=== PATIENT | female | born 1985 | race Caucasian/White ===

== ENCOUNTER → 2018-03-03 | Outpatient (REF) | payer BC ==
[2018-03-03 13:07] LABS: RHEUMATOID FACTOR QUANT 11.2 IU/ML (<15.0)
[2018-03-03 13:15] LABS: ESTIMATED AVERAGE GLUCOSE 108 MG/DL (60-110); HEMOGLOBIN A1c 5.4 %
[2018-03-03 13:19] LABS: FOLATE 8.2 NG/ML; VITAMIN B12 LEVEL > 2000 PG/ML
[2018-03-03 13:59] LABS: ERYTHROCYTE SEDIMENTATION RATE 22 mm/hr (0-20)
[2018-03-06 14:13] LABS: ANTINUCLEAR ANTIBODIES DIRECT Negative (Negative); VITAMIN B6,PYRIDOXAL PHOSPHATE 3.5 ug/L (2.0-32.8)
[2018-03-06 14:13] LABS: VITAMIN B1 LEVEL WHOLE BLOOD 123.3 nmol/L (66.5-200.0)
[2018-03-10 10:05] LABS: DRVV SCREEN 36.1 SEC
[2018-03-10 10:22] LABS: PTT LUPUS TYPE ANTICOAG SCREEN 0.9 (0-1.2)
== END ==
LOC: M LABNEURO 12:08
DX: R20.0 Anesthesia of skin (principal); G62.9 Polyneuropathy, unspecified

== ENCOUNTER → 2018-12-14 | Outpatient (REF) | payer BC ==
[2018-12-14 18:13] LABS: PROGESTERONE 8.14 NG/ML
== END ==
LOC: M LABNEURO 10:53
PROVIDERS: ATTEND Obstetrics & Gynecology Reproductive Endocrinology
DX: E28.9 Ovarian dysfunction, unspecified (principal)

== ENCOUNTER → 2019-01-15 | Outpatient (REF) | payer BC ==
[2019-01-15 15:48] LABS: HEMATOCRIT 33.8 % (36.0-47.0); HEMOGLOBIN 10.9 g/dl (12.0-15.5); MEAN CORPUSCULAR HEMOGLOBIN 29.1 pg (27.0-33.0); MEAN CORPUSCULAR HGB CONC 32.2 g/dl (32.0-36.5); MEAN CORPUSCULAR VOLUME 90.1 fl (80.0-96.0); PLATELET COUNT, AUTOMATED 264 10^3/uL (150-450); RED BLOOD COUNT 3.75 10^6/uL (4.00-5.40)
[2019-01-15 17:26] LABS: HEPATITIS C VIRUS ABY INDEX 0.2 INDEX (<0.8); HIV 1&2 SCREEN CENTAUR NEGATIVE (NEGATIVE); RUBELLA IgG QUALITATIVE IMMUNE (IMMUNE)
== END ==
LOC: M LAB REF 13:01
PROVIDERS: ATTEND Nurse Practitioner Women's Health
DX: Z34.81 Encounter for supervision of other normal pregnancy, first trimester (principal)

== ENCOUNTER → 2019-04-08 | Outpatient (REF) | payer BC | LOC: M LAB REF 11:38 | PROVIDERS: ATTEND Nurse Practitioner Women's Health | DX: O09.892 Supervision of other high risk pregnancies, second trimester (principal) ==

== ENCOUNTER → 2019-05-20 | Outpatient (REF) | payer BC | LOC: M LAB REF 12:54 | PROVIDERS: ATTEND Obstetrics & Gynecology | DX: O23.42 Unspecified infection of urinary tract in pregnancy, second trimester (principal) ==

== ENCOUNTER 2019-06-16 15:13 | Emergency (ER) | payer BC ==
[~2019-06-16] VITALS: Ht 175.3 cm; Wt 86.6 kg
[2019-06-16] MEDS ORDERED: SERT-138 PO (15:24)
[2019-06-16] MEDS ORDERED: PREN1CHW6 PO (15:24)
[2019-06-16] MEDS ORDERED: TOPI100T9 PO (15:24)
[2019-06-16] MEDS ORDERED: FLUD0.1T (15:39)
[2019-06-16 15:52] LABS: BASO % 0.2 % (0.0-1.0); EOS % 0.1 % (0.0-3.0); HEMATOCRIT 33.3 % (36.0-47.0); HEMOGLOBIN 11.2 g/dl (12.0-15.5); LYMPH # 1.6 10^3/uL (1.5-5.0); LYMPH % 13.5 % (24.0-44.0); MEAN CORPUSCULAR HEMOGLOBIN 31.3 pg (27.0-33.0); MEAN CORPUSCULAR HGB CONC 33.6 g/dl (32.0-36.5); MONO # 1.3 10^3/uL (0.0-0.8); MONO % 10.9 % (0.0-5.0); NEUTROPHILS # 8.7 10^3/uL (1.5-8.5); NEUTROPHILS % 74.5 % (36.0-66.0); PLATELET COUNT, AUTOMATED 246 10^3/uL (150-450); RED BLOOD COUNT 3.58 10^6/uL (4.00-5.40); WHITE BLOOD COUNT 11.7 10^3/uL (4.0-10.0)
[2019-06-16] MEDS ORDERED: NS 1,000 ML IV ONE (16:00)
[2019-06-16 16:12] LABS: BILIRUBIN,DIRECT 0.4 MG/DL (0.0-0.2); BILIRUBIN,TOTAL 0.7 MG/DL (0.2-1.0); TOTAL PROTEIN 7.5 GM/DL (6.4-8.2)
--- NOTE | 2019-06-16 16:37 | REP ---
Renal ultrasound for recurrent urinary tract infections: There are no comparisons. The right kidney measures 15.6 x 8.2 x 7.3 cm. The left kidney measures 3rd 10.4 x 6.1 x 6.1 cm. The kidneys are normal size. Renal cortical echogenicity is normal bilaterally. There is right hydronephrosis. There is no hydronephrosis on the left. There is right proximal hydroureter. There is no left proximal hydroureter. No renal calculi are identified. No solid or cystic renal masses are identified. Bladder: The bladder is empty and cannot be evaluated. Impression: Right hydronephrosis and proximal hydroureter. No hydronephrosis on the left. Electronically Signed by Sebastian Ivy MD 06/16/2019 04:29 P
[2019-06-16] MEDS ORDERED: AMPICILLIN SOD/SULBACTAM SOD 3 GM in D5W MINI-BAG PLUS 100 ML IV ONE (17:00)
[2019-06-16] MEDS ORDERED: KEFL500C17 PO (17:59)
[2019-06-16 18:05] VITALS: BP 112/57
== END 2019-06-16 18:16 | disposition home or self-care (01) ==
LOC: M ED 15:13
DX: O99.89 Other specified diseases and conditions complicating pregnancy, childbirth and the puerperium (principal); N10 Acute pyelonephritis; Z3A.30 30 weeks gestation of pregnancy; R56.9 Unspecified convulsions; Z98.84 Bariatric surgery status; Z95.0 Presence of cardiac pacemaker; Z79.899 Other long term (current) drug therapy

== ENCOUNTER → 2019-06-16 | Outpatient (REF) | payer BC ==
[~2019-06-16] MED LIST: FLUD0.1T; KEFL500C17 PO; PREN1CHW6 PO; SERT-138 PO; TOPI100T9 PO
== END ==
LOC: M LAB REF 13:00
PROVIDERS: ATTEND Obstetrics & Gynecology
DX: Z34.83 Encounter for supervision of other normal pregnancy, third trimester (principal)

== ENCOUNTER → 2019-07-29 | Outpatient (REF) | payer BC | LOC: M LAB REF 12:09 | PROVIDERS: ATTEND Obstetrics & Gynecology | DX: Z34.83 Encounter for supervision of other normal pregnancy, third trimester (principal) ==

== ENCOUNTER 2019-08-16 10:52 | Inpatient (IN) | payer BC ==
[2019-08-16] VITALS (43 sets, daily range): BP systolic 123–172; BP diastolic 67–107
[~2019-08-16] VITALS: Ht 175.3 cm; Wt 94.7 kg
[2019-08-16] MEDS: FLUDROCORTISONE ACETATE 0.1 MG TAB PO SCH (09:00)
[~2019-08-16 10:52] MED LIST changes: -FLUD0.1T; +FLUD0.1T PO
[2019-08-16] MEDS ORDERED: BUSP5TA PO (11:28)
[2019-08-16] MEDS ORDERED: LEVO25TA5 PO (11:28)
[2019-08-16] MEDS ORDERED: LR 1,000 ML IV SCH (11:45)
[2019-08-16 12:06] LABS: TOTAL PROTEIN,RANDOM URINE 35.8 MG/DL (0.0-12.0)
[2019-08-16 12:35] LABS: HEMATOCRIT 35.5 % (36.0-47.0); HEMOGLOBIN 11.9 g/dl (12.0-15.5); MEAN CORPUSCULAR HEMOGLOBIN 31.6 pg (27.0-33.0); MEAN CORPUSCULAR HGB CONC 33.5 g/dl (32.0-36.5); MEAN CORPUSCULAR VOLUME 94.4 fl (80.0-96.0); PLATELET COUNT, AUTOMATED 199 10^3/uL (150-450); RED BLOOD COUNT 3.76 10^6/uL (4.00-5.40); WHITE BLOOD COUNT 7.4 10^3/uL (4.0-10.0)
[2019-08-16 12:36] LABS: ALT/SGPT 15 U/L (12-78); BILIRUBIN,TOTAL 0.4 MG/DL (0.2-1.0); CREATININE FOR GFR 0.48 MG/DL (0.55-1.30); GLOMERULAR FILTRATION RATE > 60.0 (>60); LDH LACTATE DEHYDROGENASE 151 U/L (84-246); URIC ACID 4.2 MG/DL (2.6-6.0)
[2019-08-16] MEDS: miSOPROStol 50 MCG 1/2 TAB (S0191) PO SCH ×3 (14:32→22:31)
--- NOTE | 2019-08-16 14:35 | ECGEPIP ---
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
[2019-08-16] MEDS ORDERED: LABETALOL 200 MG TAB PO ONE (15:45)
[2019-08-16] MEDS: ACETAMINOPHEN TAB 650MG DOSE (2X325MG) PO PRN (20:07)
[2019-08-16] MEDS: TOPIRAMATE (TopAMAX) 100 MG TAB PO SCH (21:00)
[2019-08-17] VITALS (75 sets, daily range): BP systolic 120–192; BP diastolic 65–116
[2019-08-17] MEDS: miSOPROStol 50 MCG 1/2 TAB (S0191) PO SCH (02:00)
[2019-08-17] MEDS: ACETAMINOPHEN TAB 650MG DOSE (2X325MG) PO PRN (03:25)
[2019-08-17] MEDS ORDERED: LEVOTHYROXINE 25MCG TABLET (0.025MG) PO SCH (06:00)
[2019-08-17] MEDS ORDERED: OXYTOCIN DRIP 30 UNITS in IV 1 EA IV SCH ×2 (07:30→16:31)
[2019-08-17 07:51] LABS: HEMATOCRIT 33.9 % (36.0-47.0); HEMOGLOBIN 11.3 g/dl (12.0-15.5); MEAN CORPUSCULAR HEMOGLOBIN 32.2 pg (27.0-33.0); MEAN CORPUSCULAR HGB CONC 33.3 g/dl (32.0-36.5); MEAN CORPUSCULAR VOLUME 96.6 fl (80.0-96.0); PLATELET COUNT, AUTOMATED 182 10^3/uL (150-450); RED BLOOD COUNT 3.51 10^6/uL (4.00-5.40); WHITE BLOOD COUNT 6.9 10^3/uL (4.0-10.0)
[2019-08-17 08:21] LABS: ALT/SGPT 14 U/L (12-78); BILIRUBIN,TOTAL 0.2 MG/DL (0.2-1.0); GLOMERULAR FILTRATION RATE > 60.0 (>60); LDH LACTATE DEHYDROGENASE 149 U/L (84-246); URIC ACID 4.1 MG/DL (2.6-6.0)
[2019-08-17] MEDS ORDERED: FLUDROCORTISONE ACETATE 0.1 MG TAB PO SCH (09:00)
[2019-08-17] MEDS: FLUDROCORTISONE ACETATE 0.1 MG TAB PO SCH (09:00)
[2019-08-17] MEDS: TOPIRAMATE (TopAMAX) 100 MG TAB PO SCH ×2 (09:09→21:02)
[2019-08-17] MEDS ORDERED: FENTANYL 2MCG/ML ROPIVACAINE 0.2% IN 0.9% NACL 100ML IVBAG As Ordered ONE (10:51)
[2019-08-17] MEDS ORDERED: FENTANYL/ROPIVACAINE/NACL BAG 100 ML EPIDURAL SCH (12:15)
[2019-08-17] MEDS ORDERED: REFRIGERATOR IV KEYS XX PRN ×2 (12:15)
[2019-08-17] MEDS ORDERED: ONDANSETRON 4MG/2ML VIAL IV PRN ×2 (12:15)
[2019-08-17] MEDS ORDERED: ROPIVACAINE HCL IVBAG 200 ML EPIDURAL SCH (12:15)
[2019-08-17] MEDS ORDERED: NALOXONE INJ 0.4MG/1ML VIAL (J2310 PER 1MG) IV PRN ×2 (12:15)
[2019-08-17] MEDS ORDERED: EPIDURAL COMMENT XX SCH ×2 (12:15)
[2019-08-17] MEDS ORDERED: ePHEDrine SULFATE 25 MG/5 ML(5MG/ML) SYRINGE IV PRN ×2 (12:15)
[2019-08-17] MEDS ORDERED: LACTATED RINGER'S 1000 ML IV PRN ×2 (12:15)
[2019-08-17] MEDS ORDERED: diphenhydrAMINE 50MG/ML VIAL (J1200) IV PRN ×2 (12:15)
[2019-08-17] MEDS ORDERED: EPIDURAL/PCA KEYS XX PRN ×2 (12:15)
[2019-08-17 16:40] LABS: CORD GAS ABE V -3.7; CORD GAS HCO3 V 22.7 MEQ/L; CORD GAS O2 SAT V 70.6 %; CORD GAS PCO2 V 46.3 mmHg; CORD GAS PH V 7.309 UNITS; CORD GAS PO2 V 30.5 mmHg; CORD GAS SBC V 20.8 MEQ/L; CORD GAS TCO2 V 24.2 MEQ/L
[2019-08-17 16:43] LABS: CORD GAS ABE A -3.1; CORD GAS HCO3 A 23.3 MEQ/L; CORD GAS O2 SAT A 86.7 %; CORD GAS PCO2 A 46.7 mmHg; CORD GAS PH A 7.315 UNITS; CORD GAS PO2 A 46.3 mmHg; CORD GAS SBC A 21.6 MEQ/L; CORD GAS TCO2 A 24.7 MEQ/L
[2019-08-17] MEDS ORDERED: RHOGAM 300 MCG (1500 IU) INJ (J2790) IM SCH (16:45)
[2019-08-17] MEDS ORDERED: ACETAMINOPHEN TAB 650MG DOSE (2X325MG) PO PRN (16:45)
[2019-08-17] MEDS ORDERED: METHYLERGONOVINE MALEATE 0.2 MG TAB PO PRN (16:45)
[2019-08-17] MEDS ORDERED: DIBUCAINE 1% OINTMENT 30GM TOP PRN (16:45)
[2019-08-17] MEDS ORDERED: IBUPROFEN 800 MG TAB PO PRN (16:45)
[2019-08-17] MEDS ORDERED: DOCUSATE SODIUM 100 MG CAP PO PRN (16:45)
[2019-08-17] MEDS ORDERED: MEASLES,MUMPS,RUBELLA VACCINE INJ (MMR-II) (90707) SC SCH (16:45)
[2019-08-17] MEDS ORDERED: ANUSOL HC CREAM 30GM TOP PRN (16:45)
[2019-08-17] MEDS ORDERED: IBUPROFEN 600 MG TAB PO PRN (16:45)
[2019-08-17] MEDS ORDERED: LABETALOL 100MG/20ML VIAL IV STA (17:30)
[2019-08-17] MEDS ORDERED: MAGNESIUM SULFATE 4% INJ 20GM/500ML (40MG/ML) As Ordered ONE (18:34)
[2019-08-17] MEDS: MAG Sulf (OBGYN) 20GM/500ML 20,000 MG in IV 1 EA IV SCH (18:44)
[2019-08-17] MEDS ORDERED: MAGNESIUM *L&D* 4GM/100ML BAG (40MG/ML) IV ONE (18:45)
[2019-08-17] MEDS ORDERED: LABETALOL 100 MG TAB PO SCH (21:00)
[2019-08-18] VITALS (28 sets, daily range): BP systolic 115–176; BP diastolic 59–106
[2019-08-18] MEDS: ACETAMINOPHEN 500 MG TAB PO PRN ×4 (00:34→19:56)
--- NOTE | 2019-08-18 02:28 | HPE ---
DATE OF ADMISSION: 08/16/2019 Lena is a 34-year-old female, 5, para 1-0-3-1, with an estimated date of confinement (EDC) of 08/24/2019, estimated gestational age (EGA) 38-6/7 weeks gestation, who was seen in the office with elevated blood pressure times two and mild headache and not feeling well. After evaluation in the office, she was then sent to labor and delivery for further monitoring. Upon evaluation in labor and delivery, she continued to have elevated blood pressures with mild headache. At this point, a decision was made for admission. Patient is being admitted for pre-eclampsia and induction of labor. Her record reviewed, which was essentially unremarkable. She initiated clear at approximately 9 weeks. Her labs, blood type is A positive, rubella immune, hepatitis negative, HIV negative, GC/chlamydia negative, 1-hour sugar testing was within normal limits. Her group B streptococcus (GBS) was negative. PAST MEDICAL HISTORY: Significant history of cardiac issues with a questionable cardiac pacemaker. She does have a history of seizures, for which she is on Topamax. Patient also with questionable history of atrioventricular (AV) garth block. PAST SURGICAL HISTORY: Pacemaker implant, loop recorder. SOCIAL HISTORY: She is . Denies any alcohol, drug, or cigarette smoking. REVIEW OF SYSTEMS: Unremarkable. MEDICATION: - vitamin - Topamax ALLERGIES: She has no known drug allergies. FAMILY HISTORY: Significant for hypertension, colon polyp, hypercholesterolemia. PHYSICAL EXAM ON ADMISSION: Normal appearing female in no acute distress. Abdomen: Soft, nontender, and nondistended. Extremities: No clubbing, cyanosis. +1 to 2 lower extremity edema. Deep tendon reflex (DTR) 2/4 bilaterally. Vaginal exam: 1 cm, 50%. Fetus at -3 station in vertex position. Tracing reviewed. Category 1 tracing. LABS: Reviewed. Initial platelet count of 199. White count of 7.4. Hemoglobin and hematocrit (H and H) 11.9 over 35.5. Uric acid of 4.5. AST, ALT within normal limits. ASSESSMENT: 1. Intrauterine at 38-6/7 weeks gestation. 2. Pre-eclampsia. PLAN: Admit to labor and delivery. Routine labs sent as well as pre-eclamptic profile. Patient counseled extensively. Induction process discussed as well as risk and benefit. Given her current symptoms and gestational age, a decision was made to proceed with Cytotec induction. Patient is aware that we might need to do artificial rupture of membranes and start Pitocin. Will hold off magnesium sulfate at present. If her symptoms should worsen or blood pressures cannot be controlled, we will consider magnesium sulfate for seizure prophylaxis and antihypertensive medications.
[2019-08-18] MEDS: MAG Sulf (OBGYN) 20GM/500ML 20,000 MG in IV 1 EA IV SCH (03:05)
[2019-08-18] MEDS: LEVOTHYROXINE 25MCG TABLET (0.025MG) PO SCH (06:15)
[2019-08-18 06:31] LABS: HEMATOCRIT 28.1 % (36.0-47.0); HEMOGLOBIN 9.4 g/dl (12.0-15.5); MEAN CORPUSCULAR HGB CONC 33.5 g/dl (32.0-36.5); MEAN CORPUSCULAR VOLUME 95.6 fl (80.0-96.0); PLATELET COUNT, AUTOMATED 158 10^3/uL (150-450); RED BLOOD COUNT 2.94 10^6/uL (4.00-5.40); WHITE BLOOD COUNT 8.9 10^3/uL (4.0-10.0)
[2019-08-18 07:00] LABS: ALT/SGPT 14 U/L (12-78); BILIRUBIN,TOTAL 0.3 MG/DL (0.2-1.0); CREATININE FOR GFR 0.42 MG/DL (0.55-1.30); GLOMERULAR FILTRATION RATE > 60.0 (>60); LDH LACTATE DEHYDROGENASE 170 U/L (84-246); URIC ACID 3.9 MG/DL (2.6-6.0)
[2019-08-18] MEDS: LR 1,000 ML IV SCH ×2 (07:00→20:20)
[2019-08-18 07:38] LABS: MAGNESIUM LEVEL 4.3 MG/DL (1.8-2.4)
[2019-08-18] MEDS: FLUDROCORTISONE ACETATE 0.1 MG TAB PO SCH (09:16)
[2019-08-18] MEDS: PRENATAL VITAMINS CHEWABLE TABLET PO SCH (09:16)
[2019-08-18] MEDS: TOPIRAMATE (TopAMAX) 100 MG TAB PO SCH ×2 (09:16→21:04)
[2019-08-18] MEDS: LABETALOL 200 MG TAB PO SCH ×2 (09:50→16:53)
[2019-08-18] MEDS ORDERED: MAG Sulf (OBGYN) 20GM/500ML 20,000 MG in IV 1 EA IV SCH (13:15)
--- NOTE | 2019-08-18 14:15 | DN ---
DATE: 08/17/2019 Lena is a 34-year-old female, 5, para 1-0-3-1, who was admitted at 38-6/7 weeks gestation with preeclampsia. After she underwent three Cytotec followed by artificial rupture of membranes and Pitocin, she then progressed to fully dilated after an epidural. She delivered a live female in left occiput anterior position with a nuchal cord x1. 8 and 9. weight 6 pounds 11 ounces. Placenta delivered manually. A first degree midline perineal laceration was noted as well as a right vaginal wall ruptured vessel. At this point, #2-0 Vicryl suture was used to repair the ruptured vessel as well as the first degree perineal laceration. Good hemostasis noted. Estimated blood loss 300 mL. Both mother and baby in stable condition.
[2019-08-18] MEDS: LABETALOL 100 MG TAB PO SCH (21:05)
[2019-08-19 02:00] VITALS: BP 156/87
[2019-08-19] MEDS: LEVOTHYROXINE 25MCG TABLET (0.025MG) PO SCH (05:35)
[2019-08-19 06:00] VITALS: BP 148/86
[2019-08-19 06:22] VITALS: BP 141/87
[2019-08-19 06:55] LABS: HEMATOCRIT 28.7 % (36.0-47.0); HEMOGLOBIN 9.3 g/dl (12.0-15.5); MEAN CORPUSCULAR HEMOGLOBIN 31.5 pg (27.0-33.0); MEAN CORPUSCULAR HGB CONC 32.4 g/dl (32.0-36.5); MEAN CORPUSCULAR VOLUME 97.3 fl (80.0-96.0); PLATELET COUNT, AUTOMATED 166 10^3/uL (150-450); RED BLOOD COUNT 2.95 10^6/uL (4.00-5.40); WHITE BLOOD COUNT 9.9 10^3/uL (4.0-10.0)
[2019-08-19 07:27] LABS: ALT/SGPT 14 U/L (12-78); BILIRUBIN,TOTAL 0.3 MG/DL (0.2-1.0); CREATININE FOR GFR 0.45 MG/DL (0.55-1.30); GLOMERULAR FILTRATION RATE > 60.0 (>60); LDH LACTATE DEHYDROGENASE 202 U/L (84-246); URIC ACID 3.9 MG/DL (2.6-6.0)
[2019-08-19] MEDS ORDERED: BOOSTRIX/ADACEL VACCINE (DIPHTH/PERTUSS/ACELL/TETANUS) 0.5ML SYR IM ONE (09:00)
[2019-08-19] MEDS: FLUDROCORTISONE ACETATE 0.1 MG TAB PO SCH (09:19)
[2019-08-19 09:20] VITALS: BP 142/87
[2019-08-19] MEDS: LABETALOL 100 MG TAB PO SCH (09:20)
[2019-08-19] MEDS: TOPIRAMATE (TopAMAX) 100 MG TAB PO SCH ×2 (09:20→09:23)
[2019-08-19] MEDS: PRENATAL VITAMINS CHEWABLE TABLET PO SCH (09:20)
[2019-08-19] MEDS ORDERED: LABE300T2 PO (09:25)
[2019-08-19] MEDS ORDERED: ACET1TAB55 PO (09:25)
== END 2019-08-19 13:00 | disposition home or self-care (01) | DRG 560 ==
LOC: M LDO 10:52 → M LDI 13:51 → M OBS 08-18 20:10
PROVIDERS: ADMIT Obstetrics & Gynecology; ATTEND Obstetrics & Gynecology
PROC: 3E0P7GC Introduction of Other Therapeutic Substance into Female Reproductive, Via Natural or Artificial Opening (ICD-10-PCS; 2019-08-16)
PROC: 10E0XZZ Delivery of Products of Conception, External Approach (ICD-10-PCS; principal; 2019-08-17)
PROC: 0HQ9XZZ Repair Perineum Skin, External Approach (ICD-10-PCS; 2019-08-17)
PROC: 10907ZC Drainage of Amniotic Fluid, Therapeutic from Products of Conception, Via Natural or Artificial Opening (ICD-10-PCS; 2019-08-17)
DX: O14.94 Unspecified pre-eclampsia, complicating childbirth (principal); O99.354 Diseases of the nervous system complicating childbirth; G40.909 Epilepsy, unspecified, not intractable, without status epilepticus; Z3A.38 38 weeks gestation of pregnancy; O70.0 First degree perineal laceration during delivery; Z37.0 Single live birth

== ENCOUNTER → 2021-09-24 | Outpatient (CLI) | payer OTHER ==
[~2021-09-24] MED LIST changes: +ACET1TAB55 PO; +BUSP5TA PO; +LABE300T2 PO; +LEVO25TA5 PO
== END ==
LOC: M LABSMTC 10:43
PROVIDERS: ATTEND Anesthesiology

== ENCOUNTER → 2021-09-28 | Outpatient (CLI) | payer OTHER, MEDICARE ==
[~2021-09-28] MED LIST changes: +ISOVUE-M 300 61% 15ML VIAL As Ordered ONE; +LIDOCAINE 1% SDV 30ML VIAL As Ordered ONE; +LR 500 ML IV ONE; +MIDO2.5T PO; +NORCO, ANEXSIA 5/325MG TABLET (HYDROcodone/ACETAMINOPHEN) As Ordered ONE; +NORCO, ANEXSIA 5/325MG TABLET (HYDROcodone/ACETAMINOPHEN) PO ONE; +VALI5TAB PO; +diazePAM 5MG TABLET As Ordered ONE; +diazePAM 5MG TABLET PO ONE; +methylPREDNISolone SUSP 40MG/ML 1ML VIAL (DEPO MEDROL) As Ordered ONE
[2021-09-28 15:34] VITALS: BP 127/82
== END ==
LOC: M IRPRO 11:52
PROVIDERS: ATTEND Anesthesiology
DX: M51.16 Intervertebral disc disorders with radiculopathy, lumbar region (principal); G89.29 Other chronic pain; Z95.0 Presence of cardiac pacemaker; Z98.84 Bariatric surgery status; Z86.59 Personal history of other mental and behavioral disorders
CPT/HCPCS: 62323; J1030; Q9967

== ENCOUNTER → 2022-03-25 | Outpatient (CLI) | payer OTHER, MEDICARE ==
[~2022-03-25] MED LIST changes: -ISOVUE-M 300 61% 15ML VIAL As Ordered ONE; -LABE300T2 PO; +LABE300T55 PO; -LIDOCAINE 1% SDV 30ML VIAL As Ordered ONE; -LR 500 ML IV ONE; -NORCO, ANEXSIA 5/325MG TABLET (HYDROcodone/ACETAMINOPHEN) As Ordered ONE; -NORCO, ANEXSIA 5/325MG TABLET (HYDROcodone/ACETAMINOPHEN) PO ONE; -diazePAM 5MG TABLET As Ordered ONE; -diazePAM 5MG TABLET PO ONE; -methylPREDNISolone SUSP 40MG/ML 1ML VIAL (DEPO MEDROL) As Ordered ONE
== END ==
LOC: M PAIN 13:45
PROVIDERS: ATTEND Nurse Practitioner Family
DX: M79.10 Myalgia, unspecified site (principal); G89.29 Other chronic pain; Z95.0 Presence of cardiac pacemaker; Z98.84 Bariatric surgery status; Z88.8 Allergy status to other drugs, medicaments and biological substances; E66.01 Morbid (severe) obesity due to excess calories; Z68.42 Body mass index [BMI] 45.0-49.9, adult; Z79.899 Other long term (current) drug therapy

== ENCOUNTER → 2022-04-30 | Outpatient (CLI) | payer OTHER, MEDICARE ==
[~2022-04-30] MED LIST changes: +BUPIVACAINE HCL 0.25% 10ML VIAL As Ordered ONE; +BUPIVACAINE HCL 0.25% 30ML VIAL As Ordered ONE; +NORCO, ANEXSIA 5/325MG TABLET (HYDROcodone/ACETAMINOPHEN) As Ordered ONE; +TRIAMCINOLONE ACETONIDE SUSP 40MG/ML 1ML VIAL As Ordered ONE; +diazePAM 5MG TABLET As Ordered ONE
== END ==
LOC: M PAIN 16:00
PROVIDERS: ATTEND Anesthesiology
DX: M79.18 Myalgia, other site (principal); D64.9 Anemia, unspecified; J30.1 Allergic rhinitis due to pollen; M25.511 Pain in right shoulder; M54.2 Cervicalgia; Z95.0 Presence of cardiac pacemaker; Z98.84 Bariatric surgery status; Z79.899 Other long term (current) drug therapy; Z88.8 Allergy status to other drugs, medicaments and biological substances

== ENCOUNTER → 2022-06-05 | Outpatient (CLI) | payer OTHER, MEDICARE ==
[~2022-06-05] MED LIST changes: -BUPIVACAINE HCL 0.25% 10ML VIAL As Ordered ONE; -BUPIVACAINE HCL 0.25% 30ML VIAL As Ordered ONE; -NORCO, ANEXSIA 5/325MG TABLET (HYDROcodone/ACETAMINOPHEN) As Ordered ONE; -TRIAMCINOLONE ACETONIDE SUSP 40MG/ML 1ML VIAL As Ordered ONE; -diazePAM 5MG TABLET As Ordered ONE
== END ==
LOC: M PAIN 09:00
PROVIDERS: ATTEND Anesthesiology
DX: G89.29 Other chronic pain (principal); M47.816 Spondylosis without myelopathy or radiculopathy, lumbar region; M54.50 Low back pain, unspecified; D64.9 Anemia, unspecified; J30.1 Allergic rhinitis due to pollen; Z98.84 Bariatric surgery status; Z95.0 Presence of cardiac pacemaker; M25.511 Pain in right shoulder; Z79.899 Other long term (current) drug therapy; Z88.8 Allergy status to other drugs, medicaments and biological substances

== ENCOUNTER → 2022-07-09 | Outpatient (CLI) | payer OTHER, MEDICARE | LOC: M PAIN 07:45 | PROVIDERS: ATTEND Anesthesiology | DX: R10.2 Pelvic and perineal pain (principal); M51.16 Intervertebral disc disorders with radiculopathy, lumbar region; M25.551 Pain in right hip; M53.3 Sacrococcygeal disorders, not elsewhere classified; J30.1 Allergic rhinitis due to pollen; D64.9 Anemia, unspecified; Z98.84 Bariatric surgery status; Z95.0 Presence of cardiac pacemaker; Z79.899 Other long term (current) drug therapy | CPT/HCPCS: 76000; G0463 ==

== ENCOUNTER → 2022-10-04 | Outpatient (CLI) | payer OTHER | LOC: M PAIN 16:15 | PROVIDERS: ATTEND Nurse Practitioner Family | DX: M46.1 Sacroiliitis, not elsewhere classified (principal); D64.9 Anemia, unspecified; Z98.84 Bariatric surgery status; Z95.0 Presence of cardiac pacemaker; M54.2 Cervicalgia; M25.511 Pain in right shoulder; Z79.01 Long term (current) use of anticoagulants; Z79.899 Other long term (current) drug therapy; I44.1 Atrioventricular block, second degree; Z88.8 Allergy status to other drugs, medicaments and biological substances; J30.1 Allergic rhinitis due to pollen ==

== ENCOUNTER → 2023-04-07 | Outpatient (CLI) | payer OTHER, MEDICARE | LOC: M PAIN 10:00 | PROVIDERS: ATTEND Nurse Practitioner Family | DX: M46.1 Sacroiliitis, not elsewhere classified (principal); G89.29 Other chronic pain; M25.511 Pain in right shoulder; M25.512 Pain in left shoulder; Z79.01 Long term (current) use of anticoagulants; Z79.899 Other long term (current) drug therapy; Z88.8 Allergy status to other drugs, medicaments and biological substances ==

== ENCOUNTER → 2023-05-13 | Outpatient (CLI) | payer OTHER, MEDICARE | LOC: M PAIN 16:00 | PROVIDERS: ATTEND Nurse Practitioner Family | DX: M46.1 Sacroiliitis, not elsewhere classified (principal); G89.29 Other chronic pain; D64.9 Anemia, unspecified; Z98.84 Bariatric surgery status; Z95.0 Presence of cardiac pacemaker; Z79.899 Other long term (current) drug therapy; Z88.8 Allergy status to other drugs, medicaments and biological substances ==

== ENCOUNTER → 2023-06-20 | Outpatient (CLI) | payer OTHER, MEDICARE ==
[~2023-06-20] MED LIST changes: +ISOVUE-M 300 61% 15ML VIAL As Ordered ONE; +LABE300T28 PO; -LABE300T55 PO; +LIDOCAINE 1% SDV 30ML VIAL As Ordered ONE; +NORCO, ANEXSIA 5/325MG TABLET (HYDROcodone/ACETAMINOPHEN) As Ordered ONE; +TRIAMCINOLONE ACETONIDE SUSP 40MG/ML 1ML VIAL As Ordered ONE; +diazePAM 5MG TABLET As Ordered ONE
== END ==
LOC: M PAIN 11:00
PROVIDERS: ATTEND Anesthesiology
DX: M53.3 Sacrococcygeal disorders, not elsewhere classified (principal); D64.9 Anemia, unspecified; M54.2 Cervicalgia; Z95.0 Presence of cardiac pacemaker; Z98.84 Bariatric surgery status; Z79.899 Other long term (current) drug therapy; Z88.8 Allergy status to other drugs, medicaments and biological substances
CPT/HCPCS: G0260; J0665; J3301; Q9967

== ENCOUNTER → 2023-06-24 | Outpatient (CLI) | payer OTHER, MEDICARE ==
[~2023-06-24] MED LIST changes: -ISOVUE-M 300 61% 15ML VIAL As Ordered ONE; -LIDOCAINE 1% SDV 30ML VIAL As Ordered ONE; -NORCO, ANEXSIA 5/325MG TABLET (HYDROcodone/ACETAMINOPHEN) As Ordered ONE; -TRIAMCINOLONE ACETONIDE SUSP 40MG/ML 1ML VIAL As Ordered ONE; -diazePAM 5MG TABLET As Ordered ONE
== END ==
LOC: M PAIN 15:30
PROVIDERS: ATTEND Nurse Practitioner Family
DX: M79.12 Myalgia of auxiliary muscles, head and neck (principal); G89.29 Other chronic pain; D64.9 Anemia, unspecified; M25.511 Pain in right shoulder; M54.2 Cervicalgia; Z98.84 Bariatric surgery status; Z95.0 Presence of cardiac pacemaker; Z79.899 Other long term (current) drug therapy; Z88.8 Allergy status to other drugs, medicaments and biological substances

== ENCOUNTER → 2023-08-12 | Outpatient (CLI) | payer OTHER, MEDICARE | LOC: M PAIN 09:15 | PROVIDERS: ATTEND Nurse Practitioner Family | DX: M51.16 Intervertebral disc disorders with radiculopathy, lumbar region (principal); M50.10 Cervical disc disorder with radiculopathy, unspecified cervical region; M46.1 Sacroiliitis, not elsewhere classified; G89.29 Other chronic pain; D64.9 Anemia, unspecified; Z98.84 Bariatric surgery status; Z95.0 Presence of cardiac pacemaker; Z79.899 Other long term (current) drug therapy; Z88.8 Allergy status to other drugs, medicaments and biological substances ==

== ENCOUNTER → 2023-08-19 | Outpatient (CLI) | payer OTHER, MEDICARE ==
[~2023-08-19] MED LIST changes: +NORCO, ANEXSIA 5/325MG TABLET (HYDROcodone/ACETAMINOPHEN) As Ordered ONE; +TRIAMCINOLONE ACETONIDE SUSP 40MG/ML 1ML VIAL As Ordered ONE; +diazePAM 5MG TABLET As Ordered ONE
== END ==
LOC: M PAIN 16:30
PROVIDERS: ATTEND Anesthesiology
DX: M79.12 Myalgia of auxiliary muscles, head and neck (principal); M79.18 Myalgia, other site; G89.29 Other chronic pain; D64.9 Anemia, unspecified; Z98.84 Bariatric surgery status; Z95.0 Presence of cardiac pacemaker; M54.2 Cervicalgia; M25.511 Pain in right shoulder; Z79.899 Other long term (current) drug therapy; Z88.8 Allergy status to other drugs, medicaments and biological substances
CPT/HCPCS: 20553; J0665; J3301

== ENCOUNTER → 2023-09-19 | Outpatient (CLI) | payer OTHER, MEDICARE ==
[~2023-09-19] MED LIST changes: -NORCO, ANEXSIA 5/325MG TABLET (HYDROcodone/ACETAMINOPHEN) As Ordered ONE; -TRIAMCINOLONE ACETONIDE SUSP 40MG/ML 1ML VIAL As Ordered ONE; -diazePAM 5MG TABLET As Ordered ONE
== END ==
LOC: M PAIN 09:45
PROVIDERS: ATTEND Nurse Practitioner Family
DX: M79.12 Myalgia of auxiliary muscles, head and neck (principal); G89.29 Other chronic pain; D64.9 Anemia, unspecified; Z98.84 Bariatric surgery status; Z95.0 Presence of cardiac pacemaker; M25.511 Pain in right shoulder; Z79.899 Other long term (current) drug therapy; Z88.8 Allergy status to other drugs, medicaments and biological substances; J30.1 Allergic rhinitis due to pollen

== ENCOUNTER → 2023-11-27 | Outpatient (CLI) | payer OTHER, MEDICARE | LOC: M PAIN 09:15 | PROVIDERS: ATTEND Nurse Practitioner Family | DX: M47.812 Spondylosis without myelopathy or radiculopathy, cervical region (principal); M51.16 Intervertebral disc disorders with radiculopathy, lumbar region; G89.29 Other chronic pain; D64.9 Anemia, unspecified; Z98.84 Bariatric surgery status; Z95.0 Presence of cardiac pacemaker; M25.511 Pain in right shoulder; Z79.899 Other long term (current) drug therapy; Z88.8 Allergy status to other drugs, medicaments and biological substances ==

== ENCOUNTER → 2024-01-23 | Outpatient (CLI) | payer OTHER, MEDICARE ==
[~2024-01-23] MED LIST changes: +ISOVUE-M 300 61% 15ML VIAL As Ordered ONE; +LIDOCAINE 1% SDV 30ML VIAL As Ordered ONE; +NORCO, ANEXSIA 5/325MG TABLET (HYDROcodone/ACETAMINOPHEN) As Ordered ONE; +dexAMETHasone 10MG/1ML VIAL PRES.FREE As Ordered ONE; +diazePAM 5MG TABLET As Ordered ONE
== END ==
LOC: M PAIN 14:30
PROVIDERS: ATTEND Anesthesiology
DX: M51.16 Intervertebral disc disorders with radiculopathy, lumbar region (principal); G89.29 Other chronic pain; D64.9 Anemia, unspecified; Z98.84 Bariatric surgery status; Z95.0 Presence of cardiac pacemaker; M54.2 Cervicalgia; M25.511 Pain in right shoulder; Z79.899 Other long term (current) drug therapy; Z88.8 Allergy status to other drugs, medicaments and biological substances
CPT/HCPCS: 62323; J1100; Q9967

== ENCOUNTER → 2024-02-24 | Outpatient (CLI) | payer OTHER, MEDICARE ==
[~2024-02-24] MED LIST changes: -MIDO2.5T PO; +MIDO2.5T3 PO; -NORCO, ANEXSIA 5/325MG TABLET (HYDROcodone/ACETAMINOPHEN) As Ordered ONE; +TRIAMCINOLONE ACETONIDE SUSP 40MG/ML 1ML VIAL As Ordered ONE; -dexAMETHasone 10MG/1ML VIAL PRES.FREE As Ordered ONE; -diazePAM 5MG TABLET As Ordered ONE
== END ==
LOC: M PAIN 14:15
PROVIDERS: ATTEND Anesthesiology
DX: M47.812 Spondylosis without myelopathy or radiculopathy, cervical region (principal); G89.29 Other chronic pain; D64.9 Anemia, unspecified; M25.511 Pain in right shoulder; M54.2 Cervicalgia; Z79.899 Other long term (current) drug therapy; Z88.8 Allergy status to other drugs, medicaments and biological substances
CPT/HCPCS: 64490; 64491; J0665; J3301; Q9967

== ENCOUNTER → 2024-03-26 | Outpatient (CLI) | payer OTHER, MEDICARE ==
[~2024-03-26] MED LIST changes: -ISOVUE-M 300 61% 15ML VIAL As Ordered ONE; -LIDOCAINE 1% SDV 30ML VIAL As Ordered ONE; -TRIAMCINOLONE ACETONIDE SUSP 40MG/ML 1ML VIAL As Ordered ONE
== END ==
LOC: M PAIN 11:00
PROVIDERS: ATTEND Nurse Practitioner Family
DX: M47.812 Spondylosis without myelopathy or radiculopathy, cervical region (principal); G89.29 Other chronic pain; M54.2 Cervicalgia; D64.9 Anemia, unspecified; Z95.0 Presence of cardiac pacemaker; M25.511 Pain in right shoulder; Z88.8 Allergy status to other drugs, medicaments and biological substances

== ENCOUNTER → 2024-05-27 | Outpatient (CLI) | payer MEDICARE, OTHER | LOC: M PAIN 08:00 | PROVIDERS: ATTEND Anesthesiology | DX: M47.812 Spondylosis without myelopathy or radiculopathy, cervical region (principal); G89.29 Other chronic pain; M54.2 Cervicalgia; Z88.8 Allergy status to other drugs, medicaments and biological substances ==

== ENCOUNTER → 2024-06-15 | Outpatient (REF) | LOC: M PLAIMG 13:59 | PROVIDERS: ATTEND Internal Medicine | DX: M25.561 Pain in right knee (principal); M54.50 Low back pain, unspecified; M47.816 Spondylosis without myelopathy or radiculopathy, lumbar region ==